=== PATIENT | female | born 1990 | race Caucasian/White ===

== ENCOUNTER 2023-08-30 03:10 | Emergency (ER) | payer MEDICAID ==
[2023-08-30] MEDS ORDERED: Ketorolac 60 MG/2 ML SDV IVPUSH ONE (03:30)
[2023-08-30] MEDS ORDERED: Sodium Chloride 0.9% 1,000 ML IV SCH (03:30)
[2023-08-30 03:36] LABS: BASOPHILS ABSOLUTE AUTO 0.02 K/uL (0.02-0.10); BASOPHILS PERCENT AUTO 0.2 % (0.0-0.5); EOSINOPHILS ABSOLUTE AUTO 0.34 K/uL (0.04-0.40); EOSINOPHILS PERCENT AUTO 3.3 % (1.0-5.0); HEMATOCRIT 45.6 % (37.0-47.0); HEMOGLOBIN 15.3 g/dL (11.5-16.5); LYMPHOCYTES ABSOLUTE AUTO 4.16 K/uL (1.50-4.00); LYMPHOCYTES PERCENT AUTO 40.3 % (20.0-40.0); MEAN CORPUSCULAR HEMOGLOBIN 30.2 pg (27.0-32.0); MEAN CORPUSCULAR HGB CONC 33.6 g/dL (31.0-35.0); MEAN CORPUSCULAR VOLUME 90 fL (76-96); MONOCYTES ABSOLUTE AUTO 0.72 K/uL (0.20-0.80); NEUTROPHILS ABSOLUTE AUTO 5.09 K/uL (2.00-7.50); NEUTROPHILS PERCENT AUTO 49.2 % (45.0-70.0); PLATELET COUNT,PLT 232 K/uL (150-500); RED BLOOD CELL COUNT 5.07 M/uL (3.80-5.80); RED CELL DISTRIBUTION WIDTH 13.2 % (11.0-16.0); WHITE BLOOD CELL COUNT,WBC 10.3 K/uL (4.0-11.0)
[2023-08-30 03:50] LABS: ALBUMIN 3.6 g/dL (3.4-5.0); ANION GAP 11.7 mmol/L (5.0-15.0); BILIRUBIN TOTAL 0.4 mg/dL (0.0-1.0); BUN/CREATININE RATIO 18.1 (6-25); CALCIUM 9.3 mg/dL (8.5-10.1); CARBON DIOXIDE,CO2 27.6 mmol/L (21.0-32.0); CREATININE 0.83 mg/dL (0.55-1.02); EST CRCL DRUG DOSING (CG) 74.79 mL/min; MAGNESIUM 1.9 mg/dL (1.8-2.4); POTASSIUM,K 3.3 mmol/L (3.5-5.1); PROTEIN TOTAL,TP 7.1 g/dL (6.4-8.2)
[2023-08-30 03:51] LABS: APPEARANCE,URINE CLEAR (CLEAR); BILIRUBIN,URINE NEGATIVE (NEGATIVE); COLOR,URINE YELLOW; GLUCOSE,URINE NEGATIVE (NEGATIVE); KETONES,URINE NEGATIVE (NEGATIVE); LEUKOCYTE ESTERASE,URINE NEGATIVE (NEGATIVE); NITRITE,URINE NEGATIVE (NEGATIVE); OCCULT BLOOD,URINE NEGATIVE (NEGATIVE); PH,URINE 6.5 (5.0-8.0); PROTEIN,URINE NEGATIVE (NEGATIVE); UROBILINOGEN,URINE 0.2 E.U./dL (0.2-1.0)
[2023-08-30] MEDS ORDERED: Potassium Chloride 20 MEQ Tab.ER PO ONE (03:55)
[2023-08-30 04:32] VITALS: BP 109/75; PULSE 70
== END 2023-08-30 04:10 | disposition home or self-care (01) ==
LOC: LB.ED 03:10
DX: R10.11 Right upper quadrant pain (principal); E87.6 Hypokalemia
CPT/HCPCS: 36415; 80053; 81003; 81025; 83690; 83735; 85025; 96361; 96374; 99284; A9270; J1885; J7030

== ENCOUNTER 2023-12-24 11:36 | Emergency (ER) | payer MEDICAID ==
[2023-12-24] MEDS: Ketorolac 60 MG/2 ML SDV IM ONE (11:58)
[2023-12-24 12:08] LABS: BASOPHILS ABSOLUTE AUTO 0.03 K/uL (0.02-0.10); BASOPHILS PERCENT AUTO 0.2 % (0.0-0.5); EOSINOPHILS ABSOLUTE AUTO 0.18 K/uL (0.04-0.40); EOSINOPHILS PERCENT AUTO 1.4 % (1.0-5.0); HEMATOCRIT 46.1 % (37.0-47.0); HEMOGLOBIN 15.6 g/dL (11.5-16.5); LYMPHOCYTES ABSOLUTE AUTO 2.59 K/uL (1.50-4.00); LYMPHOCYTES PERCENT AUTO 20.2 % (20.0-40.0); MEAN CORPUSCULAR HEMOGLOBIN 30.6 pg (27.0-32.0); MEAN CORPUSCULAR HGB CONC 33.8 g/dL (31.0-35.0); MEAN CORPUSCULAR VOLUME 91 fL (76-96); MEAN PLATELET VOLUME 10.8 fL (6.0-10.0); MONOCYTES ABSOLUTE AUTO 0.84 K/uL (0.20-0.80); MONOCYTES PERCENT AUTO 6.6 % (3.0-10.0); NEUTROPHILS ABSOLUTE AUTO 9.17 K/uL (2.00-7.50); NEUTROPHILS PERCENT AUTO 71.6 % (45.0-70.0); PLATELET COUNT,PLT 225 K/uL (150-500); RED BLOOD CELL COUNT 5.09 M/uL (3.80-5.80); RED CELL DISTRIBUTION WIDTH 13.8 % (11.0-16.0); WHITE BLOOD CELL COUNT,WBC 12.8 K/uL (4.0-11.0)
[2023-12-24 12:20] LABS: APPEARANCE,URINE CLEAR (CLEAR); BILIRUBIN,URINE NEGATIVE (NEGATIVE); COLOR,URINE YELLOW; GLUCOSE,URINE NEGATIVE (NEGATIVE); KETONES,URINE NEGATIVE (NEGATIVE); LEUKOCYTE ESTERASE,URINE NEGATIVE (NEGATIVE); NITRITE,URINE NEGATIVE (NEGATIVE); OCCULT BLOOD,URINE NEGATIVE (NEGATIVE); PROTEIN,URINE NEGATIVE (NEGATIVE); UROBILINOGEN,URINE 0.2 E.U./dL (0.2-1.0)
[2023-12-24 12:22] LABS: RBC,URINE NOT SEEN /HPF; SQUAMOUS EPITHELIAL CELLS,UR OCCASIONAL /HPF; WBC,URINE 0-5 /HPF
[2023-12-24 12:31] LABS: A/G RATIO 0.9 (0.8-2.0); ALANINE AMINOTRANSFERASE,ALT 89 U/L (12-78); ALBUMIN 3.3 g/dL (3.4-5.0); ALKALINE PHOSPHATASE 236 U/L (46-116); ANION GAP 11.3 mmol/L (5.0-15.0); ASPARTATE AMNIOTRANSFERASE,AST 85 U/L (15-37); BILIRUBIN TOTAL 0.7 mg/dL (0.0-1.0); BLOOD UREA NITROGEN,BUN 9 mg/dL (8-26); BUN/CREATININE RATIO 11.4 (6-25); CALCIUM 8.7 mg/dL (8.5-10.1); CARBON DIOXIDE,CO2 30.6 mmol/L (21.0-32.0); CHLORIDE,CL 105 mmol/L (98-107); CREATININE 0.79 mg/dL (0.55-1.02); ESTIMATED GFR 103 mL/min (>60); GLUCOSE RANDOM 105 mg/dL (74-100); LIPASE 22 U/L (16-77); POTASSIUM,K 3.9 mmol/L (3.5-5.1); PROTEIN TOTAL,TP 6.8 g/dL (6.4-8.2); SODIUM,NA 143 mmol/L (136-145)
[2023-12-24 14:40] VITALS: BP 120/65; PULSE 70
== END 2023-12-24 13:03 | disposition home or self-care (01) ==
LOC: LB.ED 11:36
DX: K52.9 Noninfective gastroenteritis and colitis, unspecified (principal); H10.31 Unspecified acute conjunctivitis, right eye; H66.92 Otitis media, unspecified, left ear
CPT/HCPCS: 36415; 74176; 80053; 81001; 83690; 85025; 96372; 99283; 99284; J1885

== ENCOUNTER 2024-10-18 09:49 | Emergency (ER) | payer MEDICAID ==
[2024-10-18 10:30] VITALS: BP 100/66; PULSE 83
== END 2024-10-18 10:55 | disposition home or self-care (01) ==
LOC: LB.ED 09:49
DX: L60.0 Ingrowing nail (principal)
CPT/HCPCS: 99283